=== PATIENT | female | born 1970 | race Two or more races ===

== ENCOUNTER 2018-09-19 13:04 | Outpatient (CLI) | payer OTHER | END 2018-09-19 13:59 | disposition home or self-care (01) | LOC: RAD 13:04 | DX: R06.02 Shortness of breath (principal) ==

== ENCOUNTER 2018-09-30 11:45 | Inpatient (IN) | payer OTHER ==
[~2018-09-30] VITALS: Ht 167.6 cm; Wt 89.8 kg
[2018-10-09] MEDS ORDERED: CODE1TAB37 PO (11:41)
== END 2018-10-09 12:32 | disposition home or self-care (01) | DRG 743 ==
LOC: O/R 10-06 11:03 → OB/GYN 10-06 11:03 → SURH 10-06 11:45 → OB/GYN 10-06 18:00
PROVIDERS: ADMIT Obstetrics & Gynecology
PROC: 0UT94ZZ Resection of Uterus, Percutaneous Endoscopic Approach (ICD-10-PCS; principal; 2018-10-06 14:15)
DX: D25.1 Intramural leiomyoma of uterus (principal); D25.2 Subserosal leiomyoma of uterus; N92.0 Excessive and frequent menstruation with regular cycle